=== PATIENT | female | born 1955 | race Caucasian/White ===

== ENCOUNTER → 2016-10-30 | Outpatient (CLI) | payer OTHER ==
--- NOTE | 2016-10-30 08:54 | RAD ---
Chest, 2 views, 10/30/2016: History: Chest congestion and productive cough Comparison is made to a study from 11/03/2005. The heart size and pulmonary vascularity are normal. There is calcific plaquing of the aorta. There appears to be minimal parenchymal scarring on the left. No pulmonary consolidation is seen. There is no evidence of pleural fluid. Mild spurring is present in the spine. IMPRESSION: No acute cardiopulmonary abnormality is detected.
== END | disposition home or self-care (01) ==
LOC: DXRADRC 08:33
PROVIDERS: ATTEND Physician Assistant Medical
DX: R09.89 Other specified symptoms and signs involving the circulatory and respiratory systems (principal); R05 Cough; I70.0 Atherosclerosis of aorta
CPT/HCPCS: 71020

== ENCOUNTER 2016-11-10 17:22 | Emergency (ER) | payer OTHER ==
[~2016-11-10] VITALS: Ht 157.5 cm; Wt 63.6 kg
[2016-11-10 17:51] VITALS: BP 139/64
--- NOTE | 2016-11-10 18:28 | PHYS DOC ---
General Chief Complaint: FOREIGNBODY EAR Stated Complaint: FOREIGN OBJECT IN RT EAR Time Seen by MD: 18:26 Source: patient Exam Limitations: no limitations Problems: History of Present Illness Initial Comments Pt is 61/F to ED c/o foreign body right ear. Pt states approx 1645 today a q-tip broke off in her right ear as she was cleaning. She was unable to remove it and has come requesting removal. No discomfort initially, no discharge or bleeding however "I think it might be starting to hurt." Hearing muffled due to FB, no other complaints. Timing/Duration: this afternoon Severity: mild Location: ear (R) Prearrival Treatment: no prearrival treatment Modifying Factors: improves with other Associated Symptoms: change in hearing Allergies: Coded Allergies: No Known Drug Allergies (Unverified , 11/10/16) Past Medical History Medical History: other (bronchitis, DM, HTN) Surgical History: noncontributory Social History Smoker: cigarettes Alcohol: rarely Drugs: none Constitutional: denies fever, denies malaise Eyes: denies blindness, denies blurred vision Ears: see HPI Nose: denies congestion, denies epistaxis Throat: denies neck stiffness, denies painful swallowing Respiratory: denies cough, denies shortness of breath Gastrointestinal: denies nausea, denies vomiting Physical Exam General Appearance: WD/WN, no apparent distress Eyes: bilateral eye normal inspection, bilateral eye PERRL, bilateral eye EOMI Ears: right ear other (q-tip firmly lodged right ear canal no erythema/exudate/ bleeding, TM not visualized), left ear auricle normal, left ear canal normal, left ear TM normal Nose: normal inspection Mouth/Throat: normal mouth inspection, pharynx normal Neck: non-tender, supple Cardiovascular/Respiratory: normal breath sounds, no respiratory distress Neurologic/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 Otoscope guidance, bayonet forceps used to grasp q- tip and remove it. TM/canal appear normal after removal. Staff lavage x 1, still normal appearing pt denies complaints. Departure Time of Disposition: 18:27 Disposition: 01 HOME, SELF-CARE Diagnosis: foreign body removal right ear Condition: IMPROVED Patient Instructions: Ear Foreign Body, [id number] Additional Instructions: Avoid using q-tips in ears, ask your PCP their preferred method to clean ear canals. No further intervention should be required, if you have persistent discomfort follow up with your doctor Saturday. Return to ED with new or changing symptoms. JAKOB MARTINEZ DO Nov 10, 2016 18:28
== END 2016-11-10 18:45 | disposition home or self-care (01) ==
LOC: ER 17:22
DX: T16.1XXA Foreign body in right ear, initial encounter (principal); I10 Essential (primary) hypertension; E11.9 Type 2 diabetes mellitus without complications; F17.210 Nicotine dependence, cigarettes, uncomplicated; X58.XXXA Exposure to other specified factors, initial encounter; Y93.89 Activity, other specified; Y99.8 Other external cause status; Y92.89 Other specified places as the place of occurrence of the external cause
CPT/HCPCS: 69200; 99284-25

== ENCOUNTER → 2018-05-14 | Outpatient (CLI) | payer OTHER ==
--- NOTE | 2018-05-14 12:20 | RAD ---
Right foot, 2 views, 05/14/2018: HISTORY: Fall, foot pain No acute fracture or dislocation is identified. A sclerotic focus in the distal third metatarsal is probably a bone island. There is moderate spurring along the dorsal aspect of the mid foot. A moderate sized inferior calcaneal spur is present. Small well-defined bony fragments along the dorsal aspect of the anterior portion of the navicular bone are compatible with old trauma. Mild subcutaneous edema is evident. IMPRESSION: No acute bony abnormality is detected. Electronically signed by: Ashish Cummings MD (05/14/2018 12:17 PM) [facility]
== END | disposition home or self-care (01) ==
LOC: RAD 11:59
PROVIDERS: ATTEND Physician Assistant
DX: M77.31 Calcaneal spur, right foot (principal); R60.0 Localized edema
CPT/HCPCS: 73620

== ENCOUNTER → 2018-07-17 | Outpatient (CLI) | payer OTHER ==
--- NOTE | 2018-07-17 17:09 | RAD ---
Examination: Ultrasound left lower extremity arterial duplex HISTORY: History of left leg pain for 2 weeks COMPARISON: 08/25/2012 TECHNIQUE: Grayscale, color Doppler 2-D, spectral waveforms of the left lower extremity venous system were performed FINDINGS: The velocity in the left lower extremity: Common femoral artery 72 cm/s Deep femoral artery 41 cm/s Proximal SFA 49 cm/s Mid to distal SFA 107 cm/s Distal SFA 50 cm/s Popliteal artery 33 cm/s Proximal SKOOG MACHINE OPERATOR 40 cm/s Distal SKOOG MACHINE OPERATOR 37 cm/s Peroneal artery 14 cm/s Anterior tibialis artery 80 cm/s Dorsalis pedis artery 13 cm/s Atherosclerotic plaque identified throughout the left lower extremity arterial system. Left superficial femoral artery stent identified. Monophasic waveforms identified throughout the left lower extremity arterial system. IMPRESSION: No evidence of hemodynamically significant stenosis. Monophasic waveforms identified throughout the left lower extremity arterial system. Proximal inflow disease is not excluded. Consider CT angiography with lower extremity runoff study if clinically feasible. Electronically signed by: Samuel Dolan MD (07/17/2018 5:06 PM) [place] [id number]
== END | disposition home or self-care (01) ==
LOC: US 15:37
PROVIDERS: ATTEND Family Medicine
DX: I70.202 Unspecified atherosclerosis of native arteries of extremities, left leg (principal)
CPT/HCPCS: 93926

== ENCOUNTER → 2018-09-04 | Outpatient (CLI) | payer OTHER ==
[2018-09-04 10:28] LABS: CREATININE 0.5 mg/dL (0.6-1.0); GFR 125.4
[2018-09-04] MEDS: IOHEXOL 350 MG/ML 100 ML VIAL. IV ONE (11:10)
--- NOTE | 2018-09-04 14:38 | RAD ---
CLINICAL HISTORY: Claudication. COMPARISON: none TECHNIQUE: CT angiography of the left lower extremity was performed following the administration of contrast during the arterial phase. Axial, coronal and sagittal reformatted images were obtained. 3-D MIP reconstructions were generated. PQRS compliance statement - One or more of the following individualized dose reduction techniques were utilized for this study: 1. Automated exposure control 2. Adjustment of the mA and/or kV according to patient size 3. Use of iterative reconstruction technique FINDINGS: CT ANGIOGRAM: Dense atherosclerotic calcifications are seen of the visualized portion of the distal aorta. There is focal high-grade stenosis of the mid segment of the left common iliac artery with up to 80-90 percent focal stenosis. In addition atheromatous plaque and associated calcifications result in intermittent narrowing of the left common iliac artery Approximately 90 percent stenosis of the origin of the left internal iliac artery with intermittent atherosclerotic calcifications and atheromatous plaque. Intermittent atherosclerotic calcifications and plaque of the left external iliac artery with up to 50 percent stenosis of the mid segment. LEFT LOWER EXTREMITY: Common femoral artery: Intermittent atherosclerotic calcifications and atheromatous plaque resulting in up to 50 percent stenosis.. Deep femoral artery: Grossly patent. Superficial femoral artery: Intermittent atheromatous plaque and calcifications resulting in approximately 50-75 percent stenosis of the majority of the visualized SFA proximal to the stent. However there is a short segment of likely 90 percent stenosis of the SFA spanning approximately 1 cm (series 5 image 148-150). SFA stent is seen to the level of the popliteal artery. There is mild circumferential in-stent stenosis with up to 70 percent narrowing distally. Popliteal artery: Intermittent atherosclerotic calcifications without high-grade stenosis.. Tibioperoneal trunk: Widely patent without evidence for high-grade stenosis. Anterior tibial artery: Widely patent with in-line flow to the ankle. Peroneal artery: Widely patent with in-line flow to the ankle. Posterior tibial artery: Widely patent with in-line flow to the ankle. ADDITIONAL FINDINGS IN THE VISUALIZED PORTIONS OF THE ABDOMEN/PELVIS AND LEFT LOWER EXTREMITY: Cortical thinning/effacement at the lower pole the left kidney is partially profiled, possibly from prior surgery or from cortical infarct/ischemia or scarring. No acute fracture. Calcaneal enthesopathy. IMPRESSION: 1. 80-90 percent focal stenosis of the mid-distal portion of the left common iliac artery. 2. Up to 90 percent stenosis at the origin of the left internal iliac artery. 3. Just proximal to the SFA stent is a focal high-grade stenosis up to 90 percent spanning approximately 1 cm. 4. Other levels of atherosclerotic disease with narrowing as described in detail above. 5. Cortical thinning at the lower pole the left kidney from prior cortical scarring, infarct or postsurgical. Electronically signed by: Willie Melgar MD (09/04/2018 2:35 PM) [facility]
== END | disposition home or self-care (01) ==
LOC: CT 09:11
PROVIDERS: ATTEND Family Medicine
DX: I70.292 Other atherosclerosis of native arteries of extremities, left leg (principal); M76.892 Other specified enthesopathies of left lower limb, excluding foot; E11.9 Type 2 diabetes mellitus without complications
CPT/HCPCS: 36415; 75635; 82565; Q9967

== ENCOUNTER 2018-09-29 09:05 | Emergency (ER) | payer OTHER ==
[~2018-09-29] VITALS: Ht 157.5 cm; Wt 63.5 kg
[2018-09-29] MEDS ORDERED: MECLIZINE 12.5 MG TABLET. PO PRN (09:45)
[2018-09-29] MEDS ORDERED: MECL25TA3 PO (09:55)
--- NOTE | 2018-09-29 09:57 | PHYS DOC ---
Past History Past Medical History: Bronchitis, Diabetes, Hypertension, Other Additional Past Medical Histor: peripheral vascular disease Past Surgical History: Hysterectomy, Other Additional Past Surgical Histo: lower extremity stent Smoking: Cigarettes Alcohol Use: Rarely Drug Use: None Adult General Chief Complaint Chief Complaint: DIZZY/LIGHT HEADED HPI HPI Patient is a 63-year-old female presents complaining of dizziness that started this morning while she was at work. 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 She does a lot of bending, twisting and turning of her head in this. It was initially severe. It has gotten better over time. Improved with fixation as well as closing her left eye. There has been no ringing in the ears. No trauma. No headache. No change in vision. Some nausea, no vomiting. Worse with head movements. Symptoms are currently mild to moderate.[] Review of Systems Review of Systems Constitutional: Denies fever or chills [] Eyes: Denies change in visual acuity, redness, or eye pain [] HENT: Denies nasal congestion or sore throat [] Respiratory: Denies cough or shortness of breath [] Cardiovascular: No chest pain or palpitations[] GI: Denies abdominal pain, nausea, vomiting, bloody stools or diarrhea [] : Denies dysuria or hematuria [] Musculoskeletal: Denies back pain or joint pain [] Integument: Denies rash or skin lesions [] Neurologic: Denies headache, focal weakness or sensory changes, see history of present illness [] Endocrine: Denies polyuria or polydipsia [] All other systems were reviewed and found to be within normal limits, except as documented in this note. Current Medications Current Medications Current Medications Medications (Trade) Dose Ordered Sig/Esvin Start Time Stop Time Status Last Admin Dose Admin Meclizine HCl (Antivert) 25 mg PRN Q6HRS PRN 09/29/18 09:45 Allergies Allergies Allergies Coded Allergies Type Severity Reaction Last Updated Verified No Known Drug Allergies 11/10/16 No Physical Exam Physical Exam Constitutional: Well developed, well nourished, no acute distress, non-toxic appearance. [] HENT: Normocephalic, atraumatic, bilateral external ears normal, TMs are clear, no blood or fluid behind the TM. Oropharynx moist, no oral exudates, nose normal. [] Eyes: PERRLA, EOMI, conjunctiva normal, no discharge. [] Neck: Normal range of motion, no tenderness, supple, no stridor. No bruit auscultated [] Cardiovascular:Heart rate regular rhythm, no murmur [] Lungs & Thorax: Bilateral breath sounds clear to auscultation [] Abdomen: Not examined[] Skin: Warm, dry, no erythema, no rash. [] Back: No tenderness, no CVA tenderness. [] Extremities: No tenderness, no cyanosis, no clubbing, ROM intact, no edema. [] Neurologic: Alert and oriented X 3, normal motor function, normal sensory function, no focal deficits noted. Normal gait, normal rapid repetitive and alternating movement. Hallpike maneuver reveals nystagmus, fast beat to the left. This improves and 30-60 seconds. There is approximately 5-10 seconds of latency with change in positions. [] Psychologic: Affect normal, judgement normal, mood normal. [] Current Patient Data Vital Signs Vital Signs Date Time Temp Pulse Resp B/P (MAP) Pulse Ox O2 Delivery O2 Flow Rate FiO2 09/29/18 09:17 97.7 92 22 96 Room Air EKG EKG EKG shows a sinus rhythm at 89 bpm, no ST elevation. Normal axis, QTC of 427 ms. Interpreted by me at 0922.[] Radiology/Procedures Radiology/Procedures [] Course & Med Decision Making Course & Med Decision Making Pertinent Labs and Imaging studies reviewed. (See chart for details) Medical decision making: Patient appears to have a peripheral vertigo with sy mptoms improving. There is no evidence of a stroke syndrome. No evidence of intracranial mass, nor oral intake intolerance. No evidence of this being an acute coronary syndrome, patient without chest pain or difficulty breathing. We will treat her as an outpatient. ED course: Patient arrived, was placed in bed, and tolerated exam well. She was given Antivert which she was able to tolerate, symptoms didn't improve. Findings and plan were discussed with patient as well as the plant nurse from [facility] who was with the patient, at the patient's request.[] Dragon Disclaimer Dragon Disclaimer This electronic medical record was generated, in whole or in part, using a voice recognition dictation system. Departure Departure: Impression: Primary Impression: Peripheral vertigo Disposition: 01 HOME, SELF-CARE Condition: STABLE Referrals: MIREYA GALO MD (PCP) Follow-up in 2 days Patient Instructions: Vertigo Additional Instructions: Follow-up with your regular doctor in 2 days. Stop smoking! Take the medication as prescribed, as needed for vertigo. Return to the ER if worsening dizziness or any other concerns. Try the home Tomas Maneuver Do it 3 times a day until your symptoms have been gone for 24 hours. Your healthcare provider will also tell if your right or left ear is causing your symptoms. Follow these steps if the problem is with your right ear: Start by sitting on a bed. Turn your head 45 degrees to the right. Quickly lie back, keeping your head turned. Your shoulders should now be on the pillow, and your head should be reclined. Wait 30 seconds. Turn your head 90 degrees to the left, without raising it. Your head will now be looking 45 degrees to the left. Wait another 30 seconds. Turn your head and body another 90 degrees to the left, into the bed. Wait another 30 seconds. Sit up on the left side. Follow these steps if the problem is with your left ear: Start by sitting on a bed. Turn your head 45 degrees to the left. Quickly lie back, keeping your head turned. Your shoulders should now be on the pillow, and your head should be reclined. Wait 30 seconds. Turn your head 90 degrees to the right, without raising it. Your head will now be looking 45 degrees to the right. Wait another 30 seconds. Turn your head and body another 90 degrees to the right, into the bed. Wait another 30 seconds. Sit up on the right side. Scripts Meclizine Hcl (MECLIZINE HCL) 25 Mg Tablet 1 TAB PO TID for vertigo, #30 TAB Prov: JAVIER CUADRA DO 09/29/18 Problem Qualifiers Primary Impression: Peripheral vertigo Laterality: unspecified laterality Qualified Codes: H81.399 - Other peripheral vertigo, unspecified ear JAVIER CUADRA DO Sep 29, 2018 09:57
[2018-09-29 10:17] VITALS: BP 151/74
--- NOTE | 2018-09-29 13:57 | EKG ---
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
== END 2018-09-29 10:05 | disposition home or self-care (01) ==
LOC: ER 09:05
DX: H81.399 Other peripheral vertigo, unspecified ear (principal); E11.9 Type 2 diabetes mellitus without complications; I10 Essential (primary) hypertension; F17.210 Nicotine dependence, cigarettes, uncomplicated
CPT/HCPCS: 93005; 99283; J8597

== ENCOUNTER → 2019-01-02 | Outpatient (CLI) | payer OTHER ==
[~2019-01-02] MED LIST: MECL25TA3 PO
--- NOTE | 2019-01-02 12:46 | RAD ---
MR#: [id number] Date of Study: 01/02/2019 Ordering Physician: NICCI PATRICIA, Referring Physician: NICCI PATRICIA, Tech: Jeanette Nickerson RDMS RVT APPROVED REPORT Patient Location: OUT-PATIENT Indications PAD. H/O intervention left leg Risk Factors Hypertension Diabetes Smoking Grayscale images of the bilateral lower extremity arterial vessels revealed diffuse calcification and mild nonobstructive plaque. On the right side there is likely a greater than 75% stenosis involving the proximal SFA. There is th ree-vessel runoff below the knee. Otherwise no critical stenosis is identified On the left side common femoral arterial velocities are within normal limits. Moderate velocity accel eration in the SFA is suggestive of diffuse 50% stenosis. There is three-vessel runoff below the knee without any critical high-grade disease. VELOCITY AND DOPPLER WAVEFORM ANALYSIS RIGHT cm/secWaveformSeverity LEFT cm/secWaveform Severity pCFA 147.0MonophasicpCFA 152.0Biphasic Prof Fem Art. 89.0BiphasicProf Fem Art. 59.0Biphasic Fem Art Prox. 497.0MonophasicFem Art Prox. 192.0Monophasic Fem Art Mid. 110.0MonophasicFem Art Mid. 231.0Monophasic Fem Art Dist. 145.0MonophasicFem Art Dist. 175.0Monophasic Pop Art(AK) Pop Art(AK) Pop Art(Fossa) 79.0MonophasicPop Art(AK) 85.0Monophasic SEED DISTRICT SALES MANAGER Prox. 77.0MonophasicPTA Prox. 83.0Monophasic SEED DISTRICT SALES MANAGER Dist. 74.0MonophasicPTA Dist. 67.0Monophasic Per Art Mid. 51.0BiphasicPer Art Mid. 50.0Biphasic ALISA Prox. 44.0MonophasicATA Prox. 61.0Biphasic ALISA Dist. ALISA Dist. DPA 52MonophasicDPA 50Biphasic Critical Notification Critical Value: No <Conclusion> 1. High-grade proximal right SFA disease 2. Bilateral three-vessel runoff without any critical stenosis below the knee. Signed by : Nicci Patricia, Electronically Approved : 01/02/2019 12:46:07
== END | disposition home or self-care (01) ==
LOC: US 10:54
PROVIDERS: ATTEND Internal Medicine Cardiovascular Disease
DX: I73.9 Peripheral vascular disease, unspecified (principal)
CPT/HCPCS: 93925

== ENCOUNTER → 2020-04-05 | Outpatient (CLI) | payer OTHER ==
[~2020-04-05] MED LIST changes: +MECL-75 PO; -MECL25TA3 PO
--- NOTE | 2020-04-05 15:44 | RAD ---
MR#: [id number] Date of Study: 04/05/2020 Ordering Physician: NICCI PATRICIA, Referring Physician: NICCI PATRICIA, Tech: Florencia Serrano RVT,[facility] APPROVED REPORT Patient Location: OUT-PATIENT Exam Type: Ankle to Brachial Index Indications Mildly decreased JESSICA on the right, mildly elevated JESSICA on left consistent with mild calcification. Risk Factors History of PAD: Hypertension Smoking Pressures/Indices RightABI LeftABI Brachial 140mmHgBrachial 132mmHg Ankle(PT) 112mmHgAnkle(PT) 150mmHg Ankle(DP) 319cxYu5.9Ankle(DP) 931xuBy9.1 Critical Notification Critical Value: No <Conclusion> 1. Near normal bilateral JESSICA. Signed by : Nicci Patricia, Electronically Approved : 04/05/2020 15:43:37
--- NOTE | 2020-04-05 21:19 | RAD ---
MR#: [id number] Date of Study: 04/05/2020 Ordering Physician: NICCI PATRICIA, Referring Physician: NICCI PATRICIA, Tech: Florencia Serrano RVT, [facility] APPROVED REPORT Patient Location: OUT-PATIENT Laterality:Bilateral Indications Grayscale images of the bilateral carotid vessels demonstrates mild diffuse plaque Common carotid arteries: No significant disease External carotid arteries: Moderate right-sided disease by velocity criteria, no significant left-yesica ed disease Internal carotid arteries: No significant disease. Normal ICA to CCA ratios bilaterally Normal antegrade vertebral velocities bilaterally Risk Factors Hypertension: TIA/CVA History Smoking Doppler Spectral Velocity Analysis Right Left pCCA 98/21 cm/spCCA 112/21 cm/s mCCA 104/28 cm/smCCA 101/23 cm/s dCCA 79/16 cm/sdCCA 86/19 cm/s ECA 151/23 cm/sECA 120/14 cm/s pICA 85/24 cm/spICA 79/27 cm/s Carter 68/19 cm/smICA 89/30 cm/s dICA 51/19 cm/sdICA 109/38 cm/s Vert. 51/16 cm/sVert. 37/12 cm/s ICA/CCA 0.82ICA/CCA 0.97 Critical Notification Critical Value: No <Conclusion> 1. No significant carotid occlusive disease bilaterally Signed by : Nicci Patricia, Electronically Approved : 04/05/2020 21:18:48
--- NOTE | 2020-04-05 21:24 | RAD ---
MR#: [id number] Date of Study: 04/05/2020 Ordering Physician: NICCI PATRICIA, Referring Physician: NICCI PATRICIA, Tech: Florencia Serrano RVT, [facility] APPROVED REPORT Patient Location: OUT-PATIENT Indications PAD Grayscale images of the bilateral lower extremity arterial vessels demonstrate moderate diffuse ather osclerosis and plaque On the right side there is likely greater than 75% stenosis involving the proximal SFA. Distal to th is lesion there are monophasic waveforms with blunted velocities as noted above with three-vessel run off. On the left side mild to moderate disease noted at the proximal SFA. There are mostly biphasic and triphasic waveforms with three-vessel runoff. Risk Factors Hypertension TIA/CVA History Smoking Surgery/Intervention Stent : VELOCITY AND DOPPLER WAVEFORM ANALYSIS RIGHT cm/secWaveformSeverity LEFT cm/secWaveform Severity pCFA 179.8TriphasicpCFA 150.4Triphasic Prof Fem Art. 147.0TriphasicProf Fem Art. 153.0Triphasic Fem Art Prox. 660.7MonophasicSevere > 75%Fem Art Prox. 170.3Triphasic Fem Art Mid. 85.4MonophasicFem Art Mid. 210.5Triphasic Fem Art Dist. 105.6MonophasicFem Art Dist. 157.3Triphasic Pop Art(Fossa) 46.3MonophasicPop Art(AK) 67.1Triphasic EMPLOYMENT ADJUDICATOR Prox. 70.7MonophasicPTA Prox. 76.9Biphasic EMPLOYMENT ADJUDICATOR Dist. 54.4MonophasicPTA Dist. 67.7Biphasic Per Art Prox. 19.7MonophasicPer Art Prox. 39.4Triphasic ALISA Prox. 32.4MonophasicATA Prox. 41.6Biphasic DPA 36BiphasicDPA 35Biphasic Critical Notification Critical Value: No <Conclusion> 1. High-grade right proximal SFA stenosis Signed by : Nicci Patricia, Electronically Approved : 04/05/2020 21:23:58
--- NOTE | 2020-04-05 21:28 | CARD ---
MR#: [id number] Date of Study: 04/05/2020 Ordering Physician: NICCI GRACE, Referring Physician: NICCI GRACE, Tech: Kristel Lindsey LUIS APPROVED REPORT EXAM: Two-dimensional and M-mode echocardiogram with Doppler and color Doppler. INDICATION Hypertension/HCVD 2D DIMENSIONS RVDd1.8 (2.9-3.5cm)Left Atrium(2D)3.0 (1.6-4.0cm) IVSd0.9 (0.7-1.1cm)Aortic Root(2D)2.7 (2.0-3.7cm) LVDd4.4 (3.9-5.9cm)LVOT Diameter2.0 (1.8-2.4cm) PWd0.8 (0.7-1.1cm)LVDs2.4 (2.5-4.0cm) FS (%) 30.0 %SV68.0 ml LVEF(%)60.0 (>50%) Aortic Valve AoV Peak Rafa.160.3cm/sAoV VTI26.7cm AO Peak GR.10.3mmHgLVOT Peak Rafa.114.0cm/s LVOT VTI 21.57cmAO Mean GR.6mmHg FRANKO (VMAX)2.27jb6DTF (VTI)2.44cm2 Mitral Valve MV E Dxlklwsx72.8cm/sMV DECEL UKMX33no MV A Pvdgfgwe026.2cm/sE/A Ratio0.7 Tricuspid Valve TR P. Punmwrwl224je/sRAP BQPDJUJC6yuEc TR Peak Gr.84ehGgYKRG66tiSb Pulmonary Vein S1 Clvtoayy08.6cm/sD2 Xymqzlxs96.5cm/s LEFT VENTRICLE The left ventricle is normal size. There is normal left ventricular wall thickness. The left ventricu lar systolic function is normal and the ejection fraction is within normal range. The Ejection Fracti on is 60-65%. There is normal LV segmental wall motion. Transmitral Doppler flow pattern is Grade I-a bnormal relaxation pattern. RIGHT VENTRICLE The right ventricle is normal size. The right ventricular systolic function is normal. ATRIA The left atrium size is normal. The right atrium size is normal. The interatrial septum is intact wit h no evidence for an atrial septal defect or patent foramen ovale as noted on 2-D or Doppler imaging. AORTIC VALVE The aortic valve is normal in structure and function. Doppler and Color Flow revealed no significant aortic regurgitation. There is no significant aortic valvular stenosis. MITRAL VALVE The mitral valve is calcified but opens well. Mitral annular calcification is mild. There is no evide nce of mitral valve prolapse. There is no mitral valve stenosis. Doppler and Color Flow revealed no m itral valve regurgitation noted. TRICUSPID VALVE The tricuspid valve is normal in structure and function. Doppler and Color Flow revealed trace tricus pid regurgitation. The PA pressure was estimated at 27 mmHg. There is no tricuspid valve stenosis. PULMONIC VALVE The pulmonic valve is not well visualized. Doppler and Color Flow revealed no pulmonic valvular regur gitation. There is no pulmonic valvular stenosis. GREAT VESSELS The aortic root is normal in size. The ascending aorta is normal in size. The IVC is normal in size a nd collapses >50% with inspiration. PERICARDIAL EFFUSION There is no evidence of significant pericardial effusion. Critical Notification Critical Value: No <Conclusion> The left ventricular systolic function is normal and the ejection fraction is within normal range. Th e Ejection Fraction is 60-65%. There is normal LV segmental wall motion. Signed by : Nicci Grace, Electronically Approved : 04/05/2020 21:28:37
== END ==
LOC: US 12:55
PROVIDERS: ATTEND Internal Medicine Cardiovascular Disease
DX: I70.291 Other atherosclerosis of native arteries of extremities, right leg (principal); I65.23 Occlusion and stenosis of bilateral carotid arteries; I05.8 Other rheumatic mitral valve diseases; I10 Essential (primary) hypertension
CPT/HCPCS: 93306; 93880; 93922; 93925

== ENCOUNTER → 2020-06-21 | Outpatient (CLI) | payer OTHER ==
--- NOTE | 2020-06-21 15:42 | RAD ---
XR CHEST 2V History: Dyspnea on exertion. Comparison: Chest x-ray 10/30/2016. Technique: PA and lateral chest radiographs. Findings: The lungs are adequately and symmetrically inflated. No focal consolidation, pleural effusion or pneu mothorax. Atherosclerotic calcification of the aortic arch. The cardiomediastinal silhouette and pulm onary vasculature are within normal limits. No acute osseous abnormality. Irregular 2.5 cm calcificat ion in the left upper quadrant of the abdomen. Impression: 1. No acute cardiopulmonary process. 2. Irregular 2.5 cm left upper quadrant calcification of uncertain etiology, may represent splenic a rtery or adrenal calcifications. Electronically signed by: Angel Mcdermott MD (06/21/2020 3:40 PM) [facility]
== END ==
LOC: PMG 11:46
PROVIDERS: ATTEND Family Medicine
DX: R06.00 Dyspnea, unspecified (principal)
CPT/HCPCS: 71046

== ENCOUNTER → 2020-08-08 | Outpatient (CLI) | payer OTHER ==
--- NOTE | 2020-08-08 14:48 | RAD ---
EXAM: Pelvis and right hip, 3 views; bilateral knees, 3 views; right shoulder, 3 views. HISTORY: Pain. COMPARISON: None. FINDINGS: Pelvis and right hip: A frontal view the pelvis and 2 views of the right hip are obtained. There is m ild marginal right femoral head and acetabular spurring. There is no fracture, dislocation or subluxa tion. There is a left common iliac stent. Bilateral knees: 3 views of both knees are obtained. There is mild left medial compartment and bilate ral patellofemoral compartment spurring. There is trace left greater than right knee joint fluid. The re is no fracture, dislocation or subluxation. Right shoulder: 3 views of right shoulder obtained. There is no fracture, dislocation or subluxation. There is mild glenohumeral spurring. IMPRESSION: 1. Mild right hip osteoarthritis. 2. Mild right glenohumeral osteoarthritis. 3. Mild left medial compartment and bilateral patellofemoral compartment osteoarthritis with trace jimenez int fluid. Electronically signed by: Kelly Hernandez MD (08/08/2020 2:45 PM) [id number]
== END ==
LOC: RAD 14:04
PROVIDERS: ATTEND Physician Assistant
DX: M17.0 Bilateral primary osteoarthritis of knee (principal); M76.892 Other specified enthesopathies of left lower limb, excluding foot; M76.891 Other specified enthesopathies of right lower limb, excluding foot; M16.11 Unilateral primary osteoarthritis, right hip; M19.011 Primary osteoarthritis, right shoulder; M75.81 Other shoulder lesions, right shoulder
CPT/HCPCS: 73030; 73501; 73560; 73565

== ENCOUNTER 2021-02-22 10:28 | Emergency (ER) | payer OTHER ==
[~2021-02-22] VITALS: Ht 165.1 cm; Wt 65.6 kg
--- NOTE | 2021-02-22 10:47 | PHYS DOC ---
Past History Past Medical History: Bronchitis, Diabetes, Hypertension, Other Additional Past Medical Histor: peripheral vascular disease Past Surgical History: Hysterectomy, Other Additional Past Surgical Histo: lower extremity stent Smoking: Cigarettes Alcohol Use: Rarely Drug Use: None General Adult EDM: Chief Complaint: DIZZY/LIGHT HEADED HPI: HPI: 65-year-old female presents with difficulty enunciating her words and right- sided altered sensation. Patient tells me this started last night but she does not have an exact timeline. She was having a lot of difficulty controlling her right upper and lower extremity and she felt like her speech is slurred. The right-sided control is a little bit better but the speech has not changed. She still has some difficulty walking because she does not feel like she can fully control her right leg. Patient has no history of cardiac disease or strokes. S he is a diabetic not on insulin. She takes Plavix because of a history of peripheral vascular disease. Patient denies fever or chills. Review of Systems: Review of Systems: Constitutional: Denies fever or chills Eyes: Denies change in visual acuity HENT: Denies nasal congestion or sore throat Respiratory: Denies cough or shortness of breath Cardiovascular: Denies chest pain or edema GI: Denies abdominal pain, nausea, vomiting, bloody stools or diarrhea : Denies dysuria Musculoskeletal: Denies back pain or joint pain Integument: Denies rash Neurologic: Difficulty speaking, right upper and lower extremity altered se nsation. Endocrine: Denies polyuria or polydipsia Lymphatic: Denies swollen glands Psychiatric: Denies depression or anxiety Allergies: Allergies: Allergies Coded Allergies Type Severity Reaction Last Updated Verified No Known Drug Allergies 11/10/16 No Physical Exam: PE: Constitutional: Well developed, well nourished, no acute distress, non-toxic appearance. [] HENT: Normocephalic, atraumatic, bilateral external ears normal, oropharynx moist, no oral exudates, nose normal. [] Eyes: PERRLA, EOMI, conjunctiva normal, no discharge. [] Neck: Normal range of motion, no tenderness, supple, no stridor. [] Cardiovascular:Heart rate regular rhythm, no murmur [] Lungs & Thorax: Bilateral breath sounds clear to auscultation [] Abdomen: Bowel sounds normal, soft, no tenderness, no masses, no pulsatile masses. [] Skin: Warm, dry, no erythema, no rash. [] Back: No tenderness, no CVA tenderness. [] Extremities: No tenderness, no cyanosis, no clubbing, ROM intact, no edema. [] Neurologic: Alert and oriented X 3, see NIH stroke scale. [] Psychologic: Affect normal, judgement normal, mood normal. [] EKG: EKG: [] Radiology/Procedures: Radiology/Procedures: [] Impressions: Exam Date: 02/22/2021 10:[address] HEAD/BRAIN WO Indication: Reason: AMS, right leg coordination issue / Spl. Instructions: / History: . TECHNIQUE: Head CT was performed without intravenous contrast. One or more of the following dose reduction techniques were utilized: *Automated exposure control (AEC) *Adjustment of mA and/or kV according to patient size *Use of iterative reconstruction technique *CT scan done according to ALARA, or ALARA/IMAGE GENTLY FINDINGS: The ventricles and sulci are normal for the patient's stated age. There is no evidence of acute intracranial hemorrhage, extra-axial collection, mass effect, midline shift, or acute territorial infarct. No lesion of the skull base or the calvarium is seen. The visualized paranasal sinuses, mastoid air cells and orbits are normal in appearance. IMPRESSION: No evidence for acute intracranial abnormality. Electronically signed by: Brittany Vallecillo MD (02/22/2021 11:02 AM) [facility] DICTATED AND SIGNED BY: BRITTANY VALLECILLO MD DATE: 02/22/21 1101 CC: BRIA MATHIAS DO; MIREYA GALO MD ~MTH0 0 EXAM: Chest, single view. HISTORY: Altered mental status. COMPARISON: None. FINDINGS: A frontal view of the chest is obtained. There is no infiltrate, pleural effusion or pneumothorax. The heart is normal in size. IMPRESSION: No acute pulmonary finding. Electronically signed by: Kelly Maxwell MD (02/22/2021 10:59 AM) [email or web address] S[facility] BY: KELLY MAXWELL MD DATE: 02/22/21 1058 CC: BRIA MATHIAS DO; MIREYA GALO MD ~MTH0 0 Exam Date: 02/22/2021 12:25 PM CTA HEAD AND NECK W/WO CONTRAST Indication: Reason: slurred speech, right side proprioception deficit, OMNI 350 100ML / Spl. Instructions: / History: . TECHNIQUE: CT angiogram of the head was performed before and following the administration of nonionic intravenous contrast. Three-dimensional maximal intensity projection reformatted images and source images were created on an independent workstation and reviewed to assist with clinical management. One or more of the following dose reduction techniques were utilized: *Automated exposure control (AEC) *Adjustment of mA and/or kV according to patient size *Use of iterative reconstruction technique *CT scan done according to ALARA, or ALARA/IMAGE GENTLY COMPARISON: Head CT from earlier the same day FINDINGS: There is approximately 75% stenosis involving the cavernous portion of left internal carotid artery. The distal vertebral, basilar, distal internal carotid, and proximal anterior/posterior/middle cerebral arteries are otherwise patent. No occlusive lesion, aneurysm, or arteriovenous malformation identified. The ventricles and sulci are normal for the patient's stated age. There is no evidence of acute intracranial hemorrhage, extra-axial collection, mass effect, midline shift, or acute territorial infarct. No lesion of the skull base or the calvarium is seen. The visualized paranasal sinuses, mastoid air cells and orbits are normal in appearance. IMPRESSION: Approximately 75% stenosis involving the cavernous portion of the left internal carotid artery. No evidence of large vessel occlusion. No evidence for acute intracranial abnormality. Exam Date: 02/22/2021 12:25 PM CTA HEAD AND NECK W/WO CONTRAST Indication: Reason: slurred speech, right side proprioception deficit, OMNI 350 100ML / Spl. Instructions: / History: Technique: CT angiogram of the neck was performed before and following the administration of nonionic intravenous contrast. Three-dimensional maximum intensity projection reformatted images were created on an independent workstation and reviewed along with source images to assist with clinical management. One or more of the following dose reduction techniques were utilized: *Automated exposure control (AEC) *Adjustment of mA and/or kV according to patient size *Use of iterative reconstruction technique *CT scan done according to ALARA, or ALARA/IMAGE GENTLY Findings: Examination of the aortic arch demonstrates normal origins of the right brachiocephalic, left common carotid and left subclavian arteries. The origin of the right common carotid artery is normal. The common carotid, internal carotid, and external carotid arteries, as well as the carotid bifurcations, are normal bilaterally. The vertebral arteries are normal bilaterally. No evidence of focal stenosis, aneurysmal dilatation, or dissection in the visualized arteries of the neck. Impression: No evidence of large vessel occlusion. Note: Stenosis was evaluated using NASCET criteria. Electronically signed by: Brittany Vallecillo MD (02/22/2021 1:10 PM) [facility] DICTATED AND SIGNED BY: BRITTANY VALLECILLO MD DATE: 02/22/21 1247 CC: BRIA MATHIAS DO; MIREYA GALO MD ~MTH0 0 Heart Score: C/O Chest Pain: N/A Risk Factors: Risk Factors: DM, Current or recent (<one month) smoker, HTN, HLP, family history of CAD, obesity. Risk Scores: Score 0 - 3: 2.5% MACE over next 6 weeks - Discharge Home Score 4 - 6: 20.3% MACE over next 6 weeks - Admit for Clinical Observation Score 7 - 10: 72.7% MACE over next 6 weeks - Early Invasive Strategies Course & Med Decision Making: Course & Med Decision Making Pertinent Labs and Imaging studies reviewed. (See chart for details) The patient's head CT is negative for acute findings. Her initial NIH stroke scale is a 1. Labs are unremarkable except for an elevated glucose. Urinalysis is negative for infection. The patient's CT angiogram of the head and neck shows some stenosis but no occlusion. I have discussed the patient with Dr. Talbot and he is able to see the patient in his office today. He believes that she can be discharged and come to his office. She is stable for discharge at this time. [] Dragon Disclaimer: Dragon Disclaimer: This electronic medical record was generated, in whole or in part, using a voice recognition dictation system. NIH Stroke Scale: NIH Stroke Scale Response (Comments) Value Level of Consciousness: 0 Alert/Responsive 0 LOC Questions: 0 Answers both correctly 0 LOC Commands: 0 Performs both tasks 0 Best Gaze: 0 Normal 0 Visual: 0 No visual loss 0 Facial Palsy: 0 Normal, symmetrical 0 Motor - Left Arm 0 No drift 0 Motor - Right Arm 0 No drift 0 Motor - Left Leg 0 No drift 0 Motor: Right Leg 0 No drift 0 Limb Ataxia: 0 Absent 0 Sensory: 0 No loss 0 Best Language: 0 Normal 0 Dysathria: 1 Mild to moderate 1 Extinction and Inattention: 0 Normal 0 Total 1 Departure Departure: Impression: Primary Impression: TIA (transient ischemic attack) Disposition: 01 HOME / SELF CARE / HOMELESS Condition: STABLE Referrals: MIREYA GALO MD (PCP) Patient Instructions: Transient Ischemic Attack, [facility] BRIA MATHIAS DO Feb 22, 2021 10:47
--- NOTE | 2021-02-22 11:01 | RAD ---
EXAM: Chest, single view. HISTORY: Altered mental status. COMPARISON: None. FINDINGS: A frontal view of the chest is obtained. There is no infiltrate, pleural effusion or pneumo thorax. The heart is normal in size. IMPRESSION: No acute pulmonary finding. Electronically signed by: Kelly Hernandez MD (02/22/2021 10:59 AM) [id number]
--- NOTE | 2021-02-22 11:04 | RAD ---
Exam Date: 02/22/2021 10:[address] HEAD/BRAIN WO Indication: Reason: AMS, right leg coordination issue / Spl. Instructions: / History: . TECHNIQUE: Head CT was performed without intravenous contrast. One or more of the following dose re duction techniques were utilized: *Automated exposure control (AEC) *Adjustment of mA and/or kV according to patient size *Use of iterative reconstruction technique *CT scan done according to ALARA, or ALARA/IMAGE GENTLY FINDINGS: The ventricles and sulci are normal for the patient's stated age. There is no evidence of acute int racranial hemorrhage, extra-axial collection, mass effect, midline shift, or acute territorial infarc t. No lesion of the skull base or the calvarium is seen. The visualized paranasal sinuses, mastoid ai r cells and orbits are normal in appearance. IMPRESSION: No evidence for acute intracranial abnormality. Electronically signed by: Jj Vallecillo MD (02/22/2021 11:02 AM) [facility]
[2021-02-22 11:22] LABS: BASO % 1 % (0-3); EOS # 0.1 x10^3/uL (0.0-0.7); EOS % 1 % (0-3); HEMATOCRIT 42.5 % (36.0-47.0); HEMOGLOBIN 14.3 g/dL (12.0-15.5); LYMPH # 1.5 x10^3/uL (1.0-4.8); LYMPH % 28 % (24-48); MEAN CORPUSCULAR HEMOGLOBIN 31 pg (25-35); MEAN CORPUSCULAR HGB CONC 34 g/dL (31-37); MEAN CORPUSCULAR VOLUME 91 fL (79-100); MONO # 0.6 x10^3/uL (0.0-1.1); MONO % 11 % (0-9); NEUT # 3.3 x10^3uL (1.8-7.7); NEUT % 60 % (31-73); PLATELET COUNT 209 x10^3/uL (140-400); RED BLOOD COUNT 4.69 x10^6/uL (3.50-5.40); RED CELL DISTRIBUTION WIDTH 13.6 % (11.5-14.5); WHITE BLOOD COUNT 5.6 x10^3/uL (4.0-11.0)
[2021-02-22 11:30] LABS: CREATININE 0.6 mg/dL (0.6-1.0); POTASSIUM 3.9 mmol/L (3.5-5.1)
[2021-02-22 11:36] LABS: ALBUMIN 3.4 g/dL (3.4-5.0); ALBUMIN/GLOBULIN RATIO 1.1 (1.0-1.7); TOTAL BILIRUBIN 0.2 mg/dL (0.2-1.0); TOTAL PROTEIN 6.6 g/dL (6.4-8.2)
[2021-02-22 11:47] LABS: BILIRUBIN,URINE NEG (NEG); CLARITY,URINE HAZY; COLOR,URINE YELLOW; GLUCOSE,URINE 250 mg/dL (NEG)
[2021-02-22 11:48] VITALS: BP 148/75
[2021-02-22 11:48] LABS: AMORPHOUS SEDIMENT,UR PRESENT /HPF; BACTERIA,URINE FEW /HPF (0-FEW); NITRITE,URINE NEG (NEG); SQUAMOUS EPITHELIAL CELL,UR MANY /LPF; UROBILINOGEN,URINE 0.2 mg/dL (0.2 mg/dL)
[2021-02-22] MEDS ORDERED: IOHEXOL 350 MG/ML 100 ML VIAL. IV ONE (12:30)
[2021-02-22] MEDS ORDERED: CONTRAST GIVEN. MC PRN (12:30)
--- NOTE | 2021-02-22 13:13 | RAD ---
Exam Date: 02/22/2021 12:25 PM CTA HEAD AND NECK W/WO CONTRAST Indication: Reason: slurred speech, right side proprioception deficit, OMNI 350 100ML / Spl. Instruct ions: / History: . TECHNIQUE: CT angiogram of the head was performed before and following the administration of nonionic intravenous contrast. Three-dimensional maximal intensity projection reformatted images and source i mages were created on an independent workstation and reviewed to assist with clinical management. O ne or more of the following dose reduction techniques were utilized: *Automated exposure control (AEC) *Adjustment of mA and/or kV according to patient size *Use of iterative reconstruction technique *CT scan done according to ALARA, or ALARA/IMAGE GENTLY COMPARISON: Head CT from earlier the same day FINDINGS: There is approximately 75% stenosis involving the cavernous portion of left internal carotid artery. The distal vertebral, basilar, distal internal carotid, and proximal anterior/posterior/middle cerebr al arteries are otherwise patent. No occlusive lesion, aneurysm, or arteriovenous malformation identi fied. The ventricles and sulci are normal for the patient's stated age. There is no evidence of acute int racranial hemorrhage, extra-axial collection, mass effect, midline shift, or acute territorial infarc t. No lesion of the skull base or the calvarium is seen. The visualized paranasal sinuses, mastoid ai r cells and orbits are normal in appearance. IMPRESSION: Approximately 75% stenosis involving the cavernous portion of the left internal carotid artery. No evidence of large vessel occlusion. No evidence for acute intracranial abnormality. Exam Date: 02/22/2021 12:25 PM CTA HEAD AND NECK W/WO CONTRAST Indication: Reason: slurred speech, right side proprioception deficit, OMNI 350 100ML / Spl. Instruct ions: / History: Technique: CT angiogram of the neck was performed before and following the administration of nonionic intravenous contrast. Three-dimensional maximum intensity projection reformatted images were creat ed on an independent workstation and reviewed along with source images to assist with clinical manage ment. One or more of the following dose reduction techniques were utilized: *Automated exposure control (AEC) *Adjustment of mA and/or kV according to patient size *Use of iterative reconstruction technique *CT scan done according to ALARA, or ALARA/IMAGE GENTLY Findings: Examination of the aortic arch demonstrates normal origins of the right brachiocephalic, left common carotid and left subclavian arteries. The origin of the right common carotid artery is normal. The co mmon carotid, internal carotid, and external carotid arteries, as well as the carotid bifurcations, a re normal bilaterally. The vertebral arteries are normal bilaterally. No evidence of focal stenosis, aneurysmal dilatation, or dissection in the visualized arteries of the neck. Impression: No evidence of large vessel occlusion. Note: Stenosis was evaluated using NASCET criteria. Electronically signed by: Jj Vallecillo MD (02/22/2021 1:10 PM) [facility]
--- NOTE | 2021-02-22 13:16 | EKG ---
[address] [address] Test Date: 2021-02-22 Test Time: 11:06:16 Pat Name: JUAN PABLO KAYE Department: Room: Gender: F Case Liner: FRANCA : 1955 Requested By: BRIA MATHIAS Order Number: [id number] Reading MD: Troy Ruiz Measurements Intervals [place] Rate: 81 P: 44 CT: 198 QRS: 71 QRSD: 94 T: 65 QT: 366 QTc: 426 Interpretive Statements SINUS RHYTHM Electronically Signed On 02-25-2021 16:35:52 DIET ATTENDANT by Troy Ruiz
== END 2021-02-22 13:30 | disposition home or self-care (01) ==
LOC: ER 10:28
DX: G45.9 Transient cerebral ischemic attack, unspecified (principal); E11.9 Type 2 diabetes mellitus without complications; I10 Essential (primary) hypertension; F17.210 Nicotine dependence, cigarettes, uncomplicated
CPT/HCPCS: 36415; 70450; 70496; 70498; 71045; 80053; 81001; 82947; 84484; 85025; 93005; 99285; Q9967